=== PATIENT | female | born 2000 | race African-American/Black ===

== ENCOUNTER 2024-01-05 19:45 | Emergency (ER) | payer BC, SELFPAY ==
[2024-01-05 19:57] VITALS: BP 140/99; PULSE 94; RESP 22; TEMP 36.4; O2SAT 97; BMI 44.1
--- NOTE | 2024-01-05 20:03 | ED_ITS ---
HPI - General Adult General Chief complaint: Shortness of Breath/Dyspnea Stated complaint: SOB, diff breathing-had covid abt week ago Time Seen by Provider: 01/05/24 19:54 History of Present Illness HPI narrative: Pt states she was diagnosed with Covid one week ago. States this Wednesday she began feeling short of breath with exertion and when talking too much. Pt denies cough or fevers. Has been taking Mucinex as she thought it may be due to allergies. Pt sounds tight, was using albuterol inhaler yesterday. 23-year-old young woman presenting to the emergency department concern of shortness of breath. Has been also having small cough. Treating with Mucinex. Diagnosed with COVID around week ago; symptoms beginning about 10 days ago? Has had a couple negative antigen tests since. Underlying history of asthma since diagnosis of pneumonia 2 years ago. Has been using an albuterol inhaler without significant relief. Does not use a controller medication. Reports that mother recommended she come to the emergency department now to be seen. Today she realized she might need some more intervention as was particularly tight when she woke up after taking Mucinex in the evening. Was trying to treat some allergies. Feels sometimes that head cold symptoms lead chest symptoms but have feels like this time it is unrelated. Has noted wheeze. Related Data Home Medications ?Medication ?Instructions ?Recorded ?Confirmed cetirizine 10 mg tablet (Zyrtec) 10 mg PO QDAY 04/09/22 05/18/22 Allergies Allergy/AdvReac Type Severity Reaction Status Date / Time ethinyl estradiol Allergy Mild Congested Verified 05/18/22 10:05 [From Seasonale (91)] levonorgestrel Allergy Mild Congested Verified 05/18/22 10:05 [From Seasonale (91)] Review of Systems Status of ROS: Reports: 6 or more systems reviewed and unremarkable except as noted in History and below [facility] Medical History Pneumonia ?J18.9 - Pneumonia, unspecified organism (ICD-10) Social History Smoking Status: Never smoker Do you use any of these nicotine containing products: None Second hand tobacco smoke exposure: No How often do you have a drink containing alcohol: monthly or less How many standard drinks containing alcohol do you have on a typical day: 1 or 2 How often do you have six or more drinks on one occasion: Never AUDIT-C Alcohol total score: 1 Non-prescribed substance use: denies use Little interest or pleasure in doing things: several days Feeling down, depressed, or hopeless: several days service: No Exam Narrative: Exam Narrative: Pleasant. NAD. Speaking in full sentences. Trace wheezes audible across the room. Lungs with decent air movement. Fine end inspiratory end expiratory wheezing. Oropharynx is unremarkable. Heart in elevated but regular rate and rhythm without murmur rub or gallop identified. Appears well perfused. Const: Vital Signs, click to edit/add: Vital Signs - 24 hr 01/05/24 19:57 Temperature 97.6 F Pulse Rate [Pulse Oximeter] 94 Respiratory Rate 22 Blood Pressure [Ri ght Upper Arm] 140/99 H Pulse Oximetry 97 Oxygen Delivery Me thod Room Air Documenting provider has reviewed patient's vital signs: yes Course Vital Signs Vital signs: Initial Vital Signs Temperature 97.6 F 01/05/24 19:57 Temperature Source Temporal Artery Scan 01/05/24 19:57 Pulse Rate 94 01/05/24 19:57 Pulse Rhythm Regular 01/05/24 19:57 Respiratory Rate 22 01/05/24 19:57 Blood Pressure 140/99 H 01/05/24 19:57 Blood Pressure Mean 112 H 01/05/24 19:57 Blood Pressure Position Sitting 01/05/24 19:57 Pulse Oximetry 97 01/05/24 19:57 Oxygen Delivery Method Room Air 01/05/24 19:57 Vital Signs Temperature 97.6 F 01/05/24 19:57 Pulse Rate 94 01/05/24 19:57 Respiratory Rate 22 01/05/24 19:57 Blood Pressure 140/99 H 01/05/24 19:57 Pulse Oximetry 97 01/05/24 19:57 Oxygen Delivery Method Room Air 01/05/24 19:57 Temperature 97.6 F 01/05/24 19:57 Pulse Rate 94 01/05/24 19:57 Respiratory Rate 22 01/05/24 19:57 Blood Pressure 140/99 H 01/05/24 19:57 Pulse Oximetry 97 01/05/24 19:57 Oxygen Delivery Method Room Air 01/05/24 19:57 Medications Administered Medications: Discontinued Medications Generic Name Dose Route Start Last Admin Trade Name Kady PRN Reason Stop Dose Admin Albuterol/Ipratropium 1 neb 01/05/24 20:13 01/05/24 20:15 Iprat-Albut 0.5-2.5 Mg/3 Ml Neb 01/05/24 20:14 1 neb ONCE ONE Administration Medical Decision Making MDM Narrative Medical decision making narrative: It sounds as though has generally recovered from COVID. Does not appear to be particularly congested in the nasopharynx. Allergies might be driving this, this warm and dry fall. Might benefit from second-generation antihistamine through the remainder of the season. Would though evaluate also for pneumonia on the heels of COVID. Differential I suppose could include pneumothorax or pulmonary embolus though she is without chest pain. Suspect mild asthma exacerbation. She is oxygenating well here. Will be giving a DuoNeb reassessment of symptoms. Chest x-ray one view. Anticipate steroid course. Auscultation after DuoNeb does reveal more air movement. While still present, less wheeze. She does feel that some of the congestion is improved. Chest x-ray reviewed by me does not show any infiltrate or pneumothorax. Normal cardiac silhouette. Will be supplying with chamber/pacer. See patient discharge plan for further discussion Medical Records Medical records reviewed: Yes I reviewed the patient's medical records Discharge Plan Discharge Clinical Impression: Asthma exacerbation Patient Disposition: Home w/ Parent or Adult Condition: Improved Additional Instructions: Consider taking a daily antihistamine like cetirizine if you think allergies might be playing a role in some of your symptoms. Can use this provided spacer/chamber with your inhaler or fill the prescription for the Aero or Opti chamber. Return for persistent increasing shortness of breath, chest pain, associated lightheadedness or fever. Course of prednisone from [facility]. Prescriptions: No Action cetirizine [Zyrtec] 10 mg tablet 10 mg PO QDAY Follow Up/Referrals: Philipp Lockwood MD [Primary Care Provider] - Stand Alone Forms: [email or web address] Info Instructions
--- NOTE | 2024-01-05 20:13 | CRLHL7_ITS ---
For Patients: As a result of the Cures Act, medical imaging exams and procedure reports are released immediately into your electronic medical record. You may view this report before your referring provider. If you have questions, please contact your health care provider. INDICATION: Cough and wheezing. TECHNIQUE: Chest 1 views. COMPARISON: April 09, 2022. FINDINGS: Cardiovasculature and mediastinum: Heart size is normal. Unremarkable mediastinum. Lungs and pleural spaces: Lungs are clear. No sign of infiltrate or mass. No sign of pleural effusion. No pneumothorax. Bones and soft tissues: No significant findings. IMPRESSION: Negative chest. No sign of pneumonia. Dictated by Cory Manzano MD @ 01/05/2024 8:47:01 PM (Electronically Signed)
[2024-01-05] MEDS: IPRAT-ALBUT 0.5-2.5 MG/3 ML NEB 1 NEB IH (20:15)
== END 2024-01-05 21:02 | disposition home or self-care (01) ==
PROVIDERS: Emergency Provider Family Medicine; PCP Family Medicine
DX: J45.901 Unspecified asthma with (acute) exacerbation (principal)
CPT/HCPCS: 71045; 99284

== ENCOUNTER 2024-08-09 12:23 | Outpatient (CLI) | payer BC, SELFPAY | END 2024-08-09 12:24 | disposition home or self-care (01) | LOC: NFLDUCREF 12:24 | PROVIDERS: PCP Family Medicine; Visit Provider Nurse Practitioner Family | DX: L03.031 Cellulitis of right toe (principal); B95.7 Other staphylococcus as the cause of diseases classified elsewhere | CPT/HCPCS: 87070; 87186 ==

== ENCOUNTER 2024-08-15 14:25 | Outpatient (CLI) | payer BC, SELFPAY | END 2024-08-15 14:26 | disposition home or self-care (01) | LOC: NFLDUCREF 14:25 | PROVIDERS: PCP Family Medicine; Visit Provider Nurse Practitioner Family | DX: N92.0 Excessive and frequent menstruation with regular cycle (principal) | CPT/HCPCS: 84443 ==